=== PATIENT | male | born 1955 | race Caucasian/White ===

== ENCOUNTER 2017-09-28 21:00 | Emergency (ER) | payer OTHER ==
--- NOTE | 2017-09-28 21:34 | ER Document Report ---
ED Medical Screen (RME) - General Chief Complaint: Head Injury Stated Complaint: FALL Time Seen by Provider: 09/28/17 21:31 Notes: 62-year-old male that comes to the ED for chief complaint of fall and head injury, he tripped and hit his head on a block on the ground at 4:30 PM. Since then states he has been acting strange, he initially was complaining that he could not see but now he states his vision has cleared, states that he staggers and cannot walk in a straight line. Patient states he has a headache on the right side of his head, he hit the left side of his head. He is not on any blood thinners, past medical history of diabetes, no other medical history reported. He denies any alcohol use. TRAVEL OUTSIDE OF THE [place] IN LAST 30 DAYS: No - Related Data Allergies/Adverse Reactions: No Known Allergies Allergy (Verified 09/28/17 21:02) Past Medical History - Social History Chew tobacco use (# tins/day): No Frequency of alcohol use: Heavy Drug Abuse: None Endocrine Medical History: Reports: Hx Diabetes Mellitus Type 2 Renal/ Medical History: Denies: Hx Peritoneal Dialysis Past Surgical History: Reports: Hx Orthopedic Surgery - back surgery 30 years ago. - Immunizations Hx Diphtheria, Pertussis, Tetanus Vaccination: No Physical Exam - Vital signs Vitals: Temp Pulse Resp BP Pulse Ox 98 F 74 18 156/74 H 97 09/28/17 21:12 09/28/17 21:12 09/28/17 21:12 09/28/17 21:12 09/28/17 21:12 - Neurological Cognition: Normal Orientation: AAOx4 Jason Coma Scale Verbal: Oriented [place] Coma Scale Motor: Obeys Commands Speech: Normal Cranial nerves: Normal Cerebellar coordination: Gait ataxia Motor strength normal: LUE. No: RUE Course - Re-evaluation Re-evalutation: Patient with left arm weakness, gait instability. Concerning deficits after fall and head injury. Sent immediately for CAT scan. - Vital Signs Vital signs: Temp Pulse Resp BP Pulse Ox 98 F 74 18 156/74 H 97 09/28/17 21:12 09/28/17 21:12 09/28/17 21:12 09/28/17 21:12 09/28/17 21:12
--- NOTE | 2017-09-28 22:37 | RADIOLOGY REPORT (SQ) ---
EXAM DESCRIPTION: CT HEAD WITHOUT COMPLETED DATE/TIME: 09/28/2017 9:27 pm REASON FOR STUDY: fall, ?LOC COMPARISON: None. TECHNIQUE: Axial images acquired through the brain without intravenous contrast. Images reviewed wi th bone, brain and subdural windows. Images stored on PACS. All CT scanners at this facility use dose modulation, iterative reconstruction, and/or weight based d osing when appropriate to reduce radiation dose to as low as reasonably achievable (ALARA). [facility]: Dose Right [facility]: CareDose [facility]: Dose Right [facility]: Teradose 4D [facility]: Smart WhereNet RADIATION DOSE: CT Rad equipment meets quality standard of care and radiation dose reduction techniq ues were employed. CTDIvol: 53.2 mGy. DLP: 937 mGy-cm. mGy. LIMITATIONS: None. FINDINGS: VENTRICLES: Normal size and contour. CEREBRUM: No masses. No hemorrhage. No midline shift. No evidence for acute infarction. Normal gra y/white matter differentiation. No areas of low density in the white matter. CEREBELLUM: No masses. No hemorrhage. No alteration of density. No evidence for acute infarction. EXTRAAXIAL SPACES: No fluid collections. No masses. ORBITS AND GLOBE: No intra- or extraconal masses. Normal contour of globe without masses. CALVARIUM: No fracture. PARANASAL SINUSES: No fluid or mucosal thickening. SOFT TISSUES: No mass or hematoma. OTHER: No other significant finding. IMPRESSION: NORMAL BRAIN CT WITHOUT CONTRAST. EVIDENCE OF ACUTE STROKE: No COMMENT: Quality ID # [id number]: Final reports with documentation of one or more dose reduction techniques (e.g., Automated exposure control, adjustment of the mA and/or kV according to patient size, use of iterative reconstruction technique) TECHNICAL DOCUMENTATION: JOB ID: [id number] [employer]- All Rights Reserved Reading location - IP/workstation name: [email or web address]
--- NOTE | 2017-09-28 22:45 | ER Document Report ---
ED General - General Chief Complaint: Head Injury Stated Complaint: FALL Time Seen by Provider: 09/28/17 21:31 Notes: Patient is a 62-year-old male with a past medical history of hypertension, diabetes, current some day smoker who presents after a fall in which he struck his head. The patient reports that he tripped over his shoestrings falling down and striking his head on the ground. He reports that since that time he has had difficulty walking and his has noted that he seems confused. The patient is a notably poor historian, does seem to have difficulty expressing himself. The history is therefore somewhat impaired. The reports that since the time of injury the patient has been effectively unable to walk. The fall did occur at 3:30 PM today. Nothing has seemed to improve or worsen the patient's symptoms. He has no history of similar symptoms in the past. He has not seen his primary doctor regarding today's concerns. TRAVEL OUTSIDE OF THE [place] IN LAST 30 DAYS: No - Related Data Allergies/Adverse Reactions: No Known Allergies Allergy (Verified 09/28/17 21:02) Past Medical History - General Information source: Patient - Social History Smoking Status: Current Every Day Smoker Chew tobacco use (# tins/day): No Frequency of alcohol use: Heavy Drug Abuse: None Lives with: Spouse/Significant other Family History: Reviewed & Not Pertinent Patient has suicidal ideation: No Patient has homicidal ideation: No Endocrine Medical History: Reports: Hx Diabetes Mellitus Type 2 Renal/ Medical History: Denies: Hx Peritoneal Dialysis Past Surgical History: Reports: Hx Orthopedic Surgery - back surgery 30 years ago. - Immunizations Hx Diphtheria, Pertussis, Tetanus Vaccination: No Review of Systems - Review of Systems Notes: Constitutional: Negative for fever. HENT: Negative for sore throat. Eyes: Negative for visual changes. Cardiovascular: Negative for chest pain. Respiratory: Negative for shortness of breath. Gastrointestinal: Negative for abdominal pain, vomiting or diarrhea. Genitourinary: Negative for dysuria. Musculoskeletal: Negative for back pain. Skin: Negative for rash. Neurological: Positive for left-sided weakness and neglect 10 point ROS negative except as marked above and in HPI. Physical Exam - Vital signs Vitals: Temp Pulse Resp BP Pulse Ox 98 F 74 18 156/74 H 97 09/28/17 21:12 09/28/17 21:12 09/28/17 21:12 09/28/17 21:12 09/28/17 21:12 Interpretation: Hypertensive Notes: PHYSICAL EXAMINATION: GENERAL: Appears moderately ill, somewhat confused HEAD: Atraumatic, normocephalic. EYES: Pupils equal round and reactive to light, extraocular movements intact, sclera anicteric, conjunctiva are normal. ENT: nares patent, oropharynx clear without exudates. Moderately dry mucous membranes. NECK: Normal range of motion, supple without lymphadenopathy LUNGS: Breath sounds clear to auscultation bilaterally and equal. No wheezes rales or rhonchi. HEART: Regular rate and rhythm without murmurs ABDOMEN: Soft, nontender, normoactive bowel sounds. No guarding, no rebound. No masses appreciated. EXTREMITIES: no pitting or edema. No cyanosis. NEUROLOGICAL: Please review the medical decision making section for a more thorough neurologic examination. Slight left-sided facial droop. Left-sided neglect. Right gaze deviation. Slight dysarthria. Mild expressive aphasia. 5 out of 5 strength both distally and proximally in the right upper and lower extremity. Patient is unable to ambulate. PSYCH: Seems confused, somewhat indifferent the gravity of his situation SKIN: Warm, Dry, normal turgor, no rashes or lesions noted. Course - Re-evaluation Re-evalutation: 09/28/17 2200 Presentation is extremely worrisome for an acute stroke although patient presents 7 hours after the onset of symptoms. He has a very atypical left- sided hemineglect. Patient will move the left upper and lower extremity with verbal command but when the left side is touched he will not move it with prompting. For example, when I asked the patient to quality control my fingers on both sides he crosses midline with his left hand attempts to use both hands to grab my right hand. Even though I correct him and ask him to again squeeze with his left hand and right hand he continues to only squeeze on the right side and continues to move his left hand to squeeze my right hand. When we attempt to walk the patient he refuses to use his left upper extremity to try to help sit him up in the bed. When he attempts to walk he makes no effort to bear weight with the left lower extremity. He does maintain a right gaze deviation but does cross midline to look to the left with prompting. His speech is slowed and delayed but without dysarthria or overt aphasia. Very high level concern for an acute stroke although patient is currently outside the TPA window. I discussed the results of the CT scan as I feel that there is what appears to be an acute infarction to the right frontoparietal lobe with the radiologist although she does not believe that there is any evidence of infarction. Will contact [facility] for transfer as we do not currently have neurology support or MRI capability. 2320 Patient is having relatively rapid worsening of his symptoms, now much more lethargic, struggling to answer basic questions, continues of the right gaze deviation, no strength with testing on the left upper extremity at this time although is maintaining some strength of the left lower extremity. He continues to refuse to move the left side with physical touch. I am worried that the patient may be having evolution of an ischemic stroke versus hemorrhagic conversion. He will immediately go over for repeat CT the head and will also obtain a CT of the cervical spine while there given that he did initially have a trauma as part of his presentation. I have spoken with the stroke attending at [facility] who has recommended the patient come to [facility] for further evaluation by neurology and he has requested the hospitalist admit. 09/28/17 23:34 I discussed this case with Dr. Gil the hospitalist at [facility] was accepted this patient for transfer. I have updated him on the patient's deterioration and my plans to repeat a CT scan. I will update him with any further worsening that would indicate a need for ICU admission. I will continue to reassess the patient at regular intervals to monitor for any compromise of the airway. 09/29/17 00:37 CT repeats show an acute stroke in the right frontal parietal distribution likely a watershed distribution per the radiologist. He also notes that it appears the patient likely has a proximal right internal carotid artery occlusion. The transfer center at [facility] has been contacted to update them on the CT findings and the confirmation of a stroke distribution. Patient continues to protect his airway. 09/29/17 01:04 I have spoken to Dr. Gil and updated him on the CTA findings. He has asked that I speak with interventional neurosurgery and I am awaiting callback. 09/29/17 01:34 I was connected with the stroke attending as opposed to the interventional radiologist with whom I have asked to be connected. has asked that I be connected to the interventional neuro-radiologist. Continue to await this connection. 09/29/17 01:[address] corbett the neurosurgeon on-call who feels the patient should come over immediately as a code stroke for possible intervention with neuroradiology. The transfer center is aware of this and we will expedite this patient's transfer. 09/29/17 02:38 Transport has arrived for patient transfer. He is going to helicopter transport. He is stable for transfer this time. He has almost complete left- sided neglect at this time. - Vital Signs Vital signs: Temp Pulse Resp BP Pulse Ox 98 F 62 18 155/69 H 97 09/28/17 21:12 09/29/17 02:32 09/29/17 02:32 09/29/17 02:32 09/29/17 02:32 - Laboratory Result Diagrams: 09/28/17 22:50 09/28/17 22:50 Laboratory results interpreted by me: 09/28/17 09/28/17 22:50 22:50 Glucose 122 H Hemoglobin A1c % 6.3 H AST 14 L Triglycerides 182 H Cholesterol 210.74 H LDL Cholesterol Direct 132 H VLDL Cholesterol 36.4 H - Diagnostic Test Radiology reviewed: Image reviewed, Reports reviewed Radiology results interpreted by me: 09/29/17 03:35 CT head 1: Apparent acute versus subacute infarct in the frontal and parietal lobes repeat head CT: Unchanged from prior he had CT, unchanged from prior - EKG Interpretation by Me Additional EKG results interpreted by me: 09/29/17 03:33 Sinus rhythm. Rate 62. No ST elevations or depressions. QTC is 443. Critical Care Note - Critical Care Note Total time excluding time spent on procedures (mins): 87 Comments: Critical care time spent obtaining history from patient or surrogate, discussions with consultants, development of treatment plan with patient or surrogate, evaluation of patient's response to treatment, examination of patient , ordering and performing treatments and interventions, ordering and review of laboratory studies, re-evaluation of patient's condition, ordering and review of radiographic studies and review of old charts Discharge - Discharge Clinical Impression: Acute ischemic stroke, Miko-neglect of left side Head trauma Qualifiers: Encounter type: initial encounter Qualified Code(s): S09.90XA - Unspecified injury of head, initial encounter Condition: Critical Disposition: [facility]
[2017-09-28 23:05] LABS: ABSOLUTE BASOPHILS # (AUTO) 0.1 10^3/uL (0.0-0.2); ABSOLUTE EOSINOPHILS # (AUTO) 0.1 10^3/uL (0.0-0.6); ABSOLUTE LYMPHOCYTES (AUTO) 2.9 10^3/uL (0.5-4.7); ABSOLUTE MONOCYTES (AUTO) 0.7 10^3/uL (0.1-1.4); ABSOLUTE NEUT (AUTO) 5.3 10^3/uL (1.7-8.2); BASOPHILS % (AUTO) 0.8 % (0-2); EOSINOPHILS % (AUTO) 1.3 % (0-6); HEMATOCRIT 42.9 % (37.9-51.0); HEMOGLOBIN 14.6 g/dL (13.5-17.0); LYMPHOCYTES % (AUTO) 31.3 % (13-45); MEAN CORPUSCULAR VOLUME 94 fl (80-97); MONOCYTES % (AUTO) 8.1 % (3-13); PLATELET COUNT 252 10^3/uL (150-450); RED BLOOD COUNT 4.56 10^6/uL (4.35-5.55); RED CELL DISTRIBUTION WIDTH 13.4 % (11.5-14.0); SEGMENTED NEUTROPHILS % (AUTO) 58.5 % (42-78); TOTAL CELLS COUNTED % (AUTO) 100 %; WHITE BLOOD COUNT 9.1 10^3/uL (4.0-10.5)
[2017-09-28 23:09] LABS: INTERNATIONAL RATION (INR) 0.88; PARTIAL THROMBOPLASTIN TIME 26.5 SEC (23.5-35.8); PROTHROMBIN TIME 12.6 SEC (11.4-15.4)
[2017-09-28 23:23] LABS: ALANINE AMINOTRANSFERASE 25 U/L (21-72); ALBUMIN 4.3 g/dL (3.5-5.0); ALKALINE PHOSPHATASE 77 U/L (38-126); ANION GAP 11 (5-19); ASPARTATE AMINO TRANSFERASE 14 U/L (17-59); BILIRUBIN,DIRECT 0.1 mg/dL (0.0-0.4); BILIRUBIN,TOTAL 0.3 mg/dL (0.2-1.3); BLOOD UREA NITROGEN 13 mg/dL (7-20); CALCIUM 9.7 mg/dL (8.4-10.2); CARBON DIOXIDE 24 mmol/L (22-30); CHLORIDE 106 mmol/L (98-107); CHOLESTEROL 210.74 mg/dL (0-200); GLUCOSE 122 mg/dL (75-110); POTASSIUM 4.2 mmol/L (3.6-5.0); SODIUM 141.3 mmol/L (137-145); TRIGLYCERIDES 182 mg/dL (<150)
[2017-09-28 23:40] LABS: ALCOHOL < 10 mg/dL (NONE DETECTED); DIRECT LDL 132 mg/dL (<100); VLDL CHOLESTEROL 36.4 mg/dL (10-31)
[2017-09-29] MEDS ORDERED: CLOPIDOGREL BISULFATE 75 MG TABLET PO ONE (00:34)
[2017-09-29] MEDS ORDERED: ASPIRIN 81 MG TABLET, CHEWABLE PO ONE (00:34)
--- NOTE | 2017-09-29 00:45 | RADIOLOGY REPORT (SQ) ---
EXAM DESCRIPTION: CTA HEAD CLINICAL HISTORY: acute stroke, fall COMPARISON: None available TECHNIQUE: Axial CTA of the head obtained from the skull apex to the skull base following the uncomplicated intravenous administration of 80 mL Isovue-370. FINDINGS: Anterior circulation: In the anterior circulation there is occlusion of flow in the visualized portions of the distal cervical petrous portions of the internal carotid artery with reconstitution of flow at the level of the cavernous internal carotid artery. Reconstitution of flow may be from the ophthalmic artery branches or may be via the anterior communicating artery. The reconstituted cavernous and supraclinoid segments of the internal carotid arteries have normal course and caliber and bifurcates into patent A1 and M1 segments of the anterior and middle cerebral arteries. Additionally the right circulation gives rise to a origin right [employer] supplied predominantly by the internal carotid artery. No definite aneurysm identified. The left intracranial internal carotid artery has normal course and caliber and bifurcates into widely patent A1 and M1 branches of the left anterior and middle cerebral arteries. The left posterior communicating artery is hypoplastic. The anterior communicating artery is patent. Posterior circulation: The dominant right vertebral artery. The intracranial vertebral arteries combined to form a patent basilar artery. The basilar artery terminates predominantly in the left posterior cerebral artery and gives minimal if any supply to the right posterior cerebral artery. The superior cerebellar arteries are patent. No definite aneurysm, occlusion, or stenosis in the posterior circulation. DLP:170.12 mGy-cm IMPRESSION: 1. There is occlusion or very high-grade stenosis involving the distal cervical and petrous portions of the right internal carotid artery with reconstitution of flow at the level of the cavernous portion of the right internal carotid artery. Correlation with CTA or MRA of the neck may provide level of occlusion. 2. The supraclinoid segments of the right internal carotid artery are patent without evidence of occlusion, stenosis, or branch vessel pruning. It is of note that the right posterior cerebral artery is of origin from the right internal carotid artery. If the patient is having a watershed distribution infarction the right [employer] distribution will also be affected. 3. No evidence of stenosis or occlusion involving the left anterior circulation or posterior circulation supplied by the vertebral and basilar arteries. Urgent finding reported to Dr. Nix at 09/28/2017 11:33 PM CDT This exam was performed according to our departmental dose-optimization program, which includes automated exposure control, adjustment of the mA and/or kV according to patient size and/or use of iterative reconstruction technique.
--- NOTE | 2017-09-29 00:46 | RADIOLOGY REPORT (SQ) ---
EXAM DESCRIPTION: CT HEAD WITHOUT CLINICAL HISTORY: repeat, worsening mentation, left sided weakness COMPARISON: None available TECHNIQUE: Axial CT of the head obtained from the skull apex to the skull base without contrast. FINDINGS: No acute intracranial hemorrhage identified. No mass, mass effect, shift of the midline, or abnormal extra-axial fluid collection.Wedge-shaped regions of hypodensity involving the watershed distribution of the right cerebral hemisphere concerning for subacute ischemic change. The ventricular system and sulcal spaces are mildly enlarged compatible with mild cerebral atrophy. Scattered areas of hypodensity throughout the supratentorial white matter are nonspecific and may be related to chronic small vessel ischemic change. The visualized paranasal sinuses and the mastoids are clear. No skull fracture identified. Visualized orbits and globes are unremarkable. Atherosclerotic calcification of the intracranial internal carotid arteries. DLP:1070.38 mGy-cm IMPRESSION: 1. Hypodensities in the watershed distribution of the right cerebral hemisphere concerning for acute/subacute ischemic change. Correlation with MRI would confirm acute ischemia/infarction. Urgent finding reported to Dr. Nix at 09/28/2017 11:33 PM CDT This exam was performed according to our departmental dose-optimization program, which includes automated exposure control, adjustment of the mA and/or kV according to patient size and/or use of iterative reconstruction technique.
--- NOTE | 2017-09-29 00:48 | RADIOLOGY REPORT (SQ) ---
EXAM DESCRIPTION: CT CERVICAL SPINE WITHOUT CLINICAL HISTORY: acute stroke, fall COMPARISON: None available TECHNIQUE: Axial CT of the cervical spine obtained without contrast. FINDINGS: Alignment of the cervical spine is maintained without evidence of subluxation. The atlantoaxial, atlantodental, and occipitoatlantal intervals are preserved. No fracture identified. Vertebral body height preserved. Prevertebral soft tissues are unremarkable. Mild multilevel loss of intervertebral disc height with endplate spondylosis and uncovertebral spurring. Mild facet arthropathy. No significant neural foraminal nor central canal narrowing. Degenerative change of the atlantodental articulation. Visualized skull base is intact. No fracture of the visualized facial bones. Visualized mastoid air cells and paranasal sinuses are well aerated. Visualized thyroid is unremarkable. No cervical lymphadenopathy. No pneumothorax in the visualized lung apices. DLP: 221.57 mGy-cm IMPRESSION: 1. No acute fracture or subluxation of the cervical spine. This exam was performed according to our departmental dose-optimization program, which includes automated exposure control, adjustment of the mA and/or kV according to patient size and/or use of iterative reconstruction technique.
[2017-09-29 02:23] VITALS: BP 155/69
--- NOTE | 2017-09-29 09:35 | EKG REPORT ---
SEVERITY:- NORMAL ECG - SINUS RHYTHM : Confirmed by: Rick Ward 29-Sep-2017 09:35:07
== END 2017-09-29 02:45 | disposition short-term general hospital (02) ==
LOC: ER 21:00
DX: I63.9 Cerebral infarction, unspecified (principal); G81.90 Hemiplegia, unspecified affecting unspecified side; S09.90XA Unspecified injury of head, initial encounter; I10 Essential (primary) hypertension; E11.9 Type 2 diabetes mellitus without complications; F17.200 Nicotine dependence, unspecified, uncomplicated; W18.09XA Striking against other object with subsequent fall, initial encounter
CPT/HCPCS: 93005; 99291; 99292; 36415; 80307; 85025; 85610; 85730; 80053; 84484; 83036; 80061; 70450; 70496; 72125; 93010; A9270 ×2

== ENCOUNTER 2018-12-08 18:40 | Emergency (ER) | payer MEDICAID, MEDICARE ==
--- NOTE | 2018-12-08 19:09 | ER Document Report ---
ED Medical Screen (RME) - General Chief Complaint: Psych Problem Stated Complaint: ALTERED MENTAL STATUS Time Seen by Provider: 12/08/18 19:06 Primary Care Provider: DRE GARCIA III, MD [Primary Care Provider] - Follow up as needed Mode of Arrival: Wheelchair Information source: Patient Notes: 63-year-old male presented to ED for suicidal ideation. states he has had suicidal thoughts off and on for a year since he had a stroke a year ago but for the last month his been more more frequently talk about hurting himself. He states tonight he stated that he needed to go the hospital right away that he was having a "psychotic break" and he thought he might hurt himself. I have greeted and performed a rapid initial assessment of this patient. A comprehensive ED assessment and evaluation of the patient, analysis of test results and completion of medical decision making process will be conducted by an additional ED providers. Dictation of this chart was performed using voice recognition software; therefore, there may be some unintended grammatical errors. TRAVEL OUTSIDE OF THE [place] IN LAST 30 DAYS: No - Related Data Allergies/Adverse Reactions: No Known Allergies Allergy (Verified 12/08/18 18:42) Past Medical History Endocrine Medical History: Reports: Hx Diabetes Mellitus Type 2 Renal/ Medical History: Denies: Hx Peritoneal Dialysis Past Surgical History: Reports: Hx Orthopedic Surgery - back surgery 30 years ago. - Immunizations Hx Diphtheria, Pertussis, Tetanus Vaccination: No Physical Exam - Vital signs Vitals: Temp Pulse Resp BP Pulse Ox 98.7 F 77 14 121/84 95 12/08/18 18:56 12/08/18 18:56 12/08/18 18:56 12/08/18 18:56 12/08/18 18:56 Course - Vital Signs Vital signs: Temp Pulse Resp BP Pulse Ox 98.7 F 77 14 121/84 95 12/08/18 18:56 12/08/18 18:56 12/08/18 18:56 12/08/18 18:56 12/08/18 18:56 Doctor's Discharge - Discharge Referrals: DRE GARCIA III, MD [Primary Care Provider] - Follow up as needed
--- NOTE | 2018-12-08 19:27 | ER Document Report ---
Addendum entered and electronically signed by REGGIE JANE DO 12/12/18 11:56: Discharge - Discharge Clinical Impression: Suicidal ideation Condition: Stable Disposition: HOME, SELF-CARE Additional Instructions: You have been evaluated by both medical and behavioral health providers while in the emergency department. You have been cleared from both acute medical and psychiatric services. Your medications have been adjusted to better address depression and anxiety. You have had a medical situation that has changed your life. In such situations outpatient therapy is often helpful and recommended. DEPRESSION: Your evaluation reveals that you have mental depression. While symptoms may be vague, they often include disturbance of sleep, fatigue, loss of appetite, and general loss of interest in life. While depression may be a side effect of drugs, or a reaction to a major change in your life, many cases have no known cause. If depression is acute, and related to a major loss in your life, you can expect it to clear completely with time. If you have been depressed a long time, are prone to repeated bouts of depression or low mood, or have been thinking of suicide, get help. Depression can be treated with anti-depressant medication and counselling. Long-term depression will often take a few weeks to clear, even with appropriate medication. Follow-up care is important. SUICIDAL IDEATION: Suicidal ideation is a common medical term for thoughts about suicide, which may be as detailed as a formulated plan, without the suicidal act itself. Although most people who undergo suicidal ideation do not commit suicide, some go on to make suicide attempts. The range of suicidal ideation varies greatly from fleeting to detailed planning, role playing, and unsuccessful attempts. While thoughts about suicide are common, most people do not carry out serious actions to commit suicide. Based upon your evaluation and discussion with you, we do not believe you are currently at risk to act upon your thoughts of suicide. You have agreed to return to the Emergency Department, at any time, if you feel inclined to act upon your suicidal thoughts. FOLLOW-UP CARE: Your medication regimen is Prozac 20MG daily for depression and Buspar 5MG twice a day for anxiety/calming effect/depression/sleep. You should take these medications as prescribed. You have follow up appointments at [facility] ([facility]) 12/20/18 at 0800 for medication management and 12/27/18 at 0900 for therapy. You have been provided the [facility] Mobile Crisis number for crisis, talk therapy and linkage to other services/supports. If you experience worsening or a significant change in your symptoms, notify the physician immediately, utilize mobile crisis or return to the Emergency Department at any time for re-evaluation. Prescriptions: Buspirone HCl [Buspar 5 mg Tablet] 1 tab PO BID #28 tab Fluoxetine HCl [Prozac 20 mg Capsule] 20 mg PO DAILY #14 capsule Referrals: [facility] [Provider Group] - 12/20/18 7:30 am [facility]FS Crisis Team [Outside] - Follow up as needed DRE GARCIA III, MD [Primary Care Provider] - Follow up as needed Addendum entered and electronically signed by AVINASH ARGUELLO LPC 12/12/18 11:35: Discharge - Discharge Clinical Impression: Suicidal ideation Condition: Stable Disposition: HOME, SELF-CARE Additional Instructions: You have been evaluated by both medical and behavioral health providers while in the emergency department. You have been cleared from both acute medical and psychiatric services. Your medications have been adjusted to better address depression and anxiety. You have had a medical situation that has changed your life. In such situations outpatient therapy is often helpful and recommended. DEPRESSION: Your evaluation reveals that you have mental depression. While symptoms may be vague, they often include disturbance of sleep, fatigue, loss of appetite, and general loss of interest in life. While depression may be a side effect of drugs, or a reaction to a major change in your life, many cases have no known cause. If depression is acute, and related to a major loss in your life, you can expect it to clear completely with time. If you have been depressed a long time, are prone to repeated bouts of depression or low mood, or have been thinking of suicide, get help. Depression can be treated with anti-depressant medication and counselling. Long-term depression will often take a few weeks to clear, even with appropriate medication. Follow-up care is important. SUICIDAL IDEATION: Suicidal ideation is a common medical term for thoughts about suicide, which may be as detailed as a formulated plan, without the suicidal act itself. Although most people who undergo suicidal ideation do not commit suicide, some go on to make suicide attempts. The range of suicidal ideation varies greatly from fleeting to detailed planning, role playing, and unsuccessful attempts. While thoughts about suicide are common, most people do not carry out serious actions to commit suicide. Based upon your evaluation and discussion with you, we do not believe you are currently at risk to act upon your thoughts of suicide. You have agreed to return to the Emergency Department, at any time, if you feel inclined to act upon your suicidal thoughts. FOLLOW-UP CARE: Your medication regimen is Prozac 20MG daily for depression and Buspar 5MG twice a day for anxiety/calming effect/depression/sleep. You should take these medications as prescribed. You have follow up appointments at [facility] ([facility]) 12/20/18 at 0800 for medication management and 12/27/18 at 0900 for therapy. You have been provided the [facility] Mobile Crisis number for crisis, talk therapy and linkage to other services/supports. If you experience worsening or a significant change in your symptoms, notify the physician immediately, utilize mobile crisis or return to the Emergency Department at any time for re-evaluation. Referrals: DRE GARCIA III, MD [Primary Care Provider] - Follow up as needed [facility] Crisis Team [Outside] - Follow up as needed [facility] [Provider Group] - 12/20/18 7:30 am Original Note: ED General - General Chief Complaint: Psych Problem Stated Complaint: ALTERED MENTAL STATUS Time Seen by Provider: 12/08/18 19:06 Primary Care Provider: DRE GARCIA III, MD [Primary Care Provider] - Follow up as needed Mode of Arrival: Wheelchair Notes: Patient is a 63-year-old male with history of stroke, and depression that presents to the emergency department for chief complaint of suicidal ideation. Patient states that he has been having more frequent suicidal thoughts, mentions that he would drink Maicol-Aid and antifreeze, his reports that after he was discharged home after having a stroke about a year ago, he has been more depressed, and having suicidal thoughts more frequently and more recently. He does walk to some degree, but states that he feels worthless, is not able to do anything that he used to be able to do. He had a suicide attempt about 8 years ago family states has been on and off suicidal for many years since her daughter , is a former alcoholic but has been much worse since leaving the hospital after his stroke. His states that she has removed all the guns in the house and the accessible pills, but states that he frequently will look for the guns as well as medications. Past Medical History: CVA, diabetes mellitus, hypertension, hyperlipidemia, depression Past Surgical History: Back surgery Social History: Admits to smoking cigarettes, former alcoholic, no drug use. Lives at home with family Family History: Reviewed and noncontributory for presenting illness Allergies: Reviewed, see documented allergy list. REVIEW OF SYSTEMS: Other than noted above, the 12 point review of systems was reviewed with the patient and were negative, all pertinent findings are included in the HPI. PHYSICAL EXAMINATION: Vital signs reviewed, nursing noted reviewed. GENERAL: Well-appearing, well-nourished and in no acute distress. HEAD: Atraumatic, normocephalic. EYES: Eyes appear normal, extraocular movements intact, sclera anicteric, conjunctiva are normal. ENT: nares patent, oropharynx clear without exudates. Moist mucous membranes. NECK: Normal range of motion, supple without lymphadenopathy LUNGS: Breath sounds clear to auscultation bilaterally and equal. No wheezes r ales or rhonchi. HEART: Regular rate and rhythm without murmurs ABDOMEN: Soft, nontender, normoactive bowel sounds. No rebound, guarding, or rigidity. No masses appreciated. EXTREMITIES: Nontender, good range of motion, no pitting or edema. NEUROLOGICAL: Left-sided complete hemiparesis, sensation intact distally in all extremities, alert and oriented x4. PSYCH: Dysphoric mood, flat affect SKIN: Warm, Dry, normal turgor, no rashes or lesions noted on exposed skin TRAVEL OUTSIDE OF THE [place] IN LAST 30 DAYS: No - Related Data Allergies/Adverse Reactions: No Known Allergies Allergy (Verified 12/08/18 18:42) Past Medical History - General Information source: Patient - Social History Smoking Status: Current Every Day Smoker Frequency of alcohol use: None Drug Abuse: None Family History: Reviewed & Not Pertinent Patient has suicidal ideation: Yes Patient has homicidal ideation: No Endocrine Medical History: Reports: Hx Diabetes Mellitus Type 2 Renal/ Medical History: Denies: Hx Peritoneal Dialysis Past Surgical History: Reports: Hx Orthopedic Surgery - back surgery 30 years ago. - Immunizations Hx Diphtheria, Pertussis, Tetanus Vaccination: No Physical Exam - Vital signs Vitals: Temp Pulse Resp BP Pulse Ox 98.7 F 77 14 121/84 95 12/08/18 18:56 12/08/18 18:56 12/08/18 18:56 12/08/18 18:56 12/08/18 18:56 Course - Re-evaluation Re-evalutation: Patient seen and examined, vital signs reviewed. Medical screening testing was ordered including bloodwork, EKG, and toxicology. Results of testing were reviewed. Testing demonstrated mild leukocytosis, and mild anemia, no evidence of acute infection based on exam. Patient has been stable from a hemodynamic standpoint. At this point I feel that the patient is medically cleared and can be further evaluated from a psychiatric standpoint for final disposition from the emergency department. Patient seems to be rather depressed and dysphoric, and does seem to have intent, he is on an SSRI, but is still having frequent suicidal thoughts, and would benefit evaluation from a psychiatric team, he also will likely need continued rehab, which would benefit his mental health as well, family thinks he may need inpatient rehab if possible, social work was consulted to discuss about this the patient is cleared. Patient updated on plan of care. Laboratory 12/08/18 12/08/18 19:15 19:15 WBC 10.6 H RBC 4.04 L Hgb 12.9 L Hct 36.5 L MCV 90 MCH 31.9 MCHC 35.3 RDW 13.0 Plt Count 340 Seg Neutrophils % 60.7 Lymphocytes % 30.1 Monocytes % 6.6 Eosinophils % 1.5 Basophils % 1.1 Absolute Neutrophils 6.5 Absolute Lymphocytes 3.2 Absolute Monocytes 0.7 Absolute Eosinophils 0.2 Absolute Basophils 0.1 Sodium 140.4 Potassium 3.8 Chloride 102 Carbon Dioxide 28 Anion Gap 10 BUN 15 Creatinine 0.86 Est GFR ( Amer) > 60 Est GFR (Non-Af Amer) > 60 Glucose 131 H Calcium 9.6 Total Bilirubin 0.2 Direct Bilirubin 0.2 Neonat Total Bilirubin Not Reportable Neonat Direct Bilirubin Not Reportable Neonat Indirect Bili Not Reportable AST 13 L ALT 22 Alkaline Phosphatase 87 Total Protein 7.0 Albumin 4.3 Salicylates < 1.0 L Acetaminophen < 10 L Serum Alcohol < 10 - Vital Signs Vital signs: Temp Pulse Resp BP Pulse Ox 98.7 F 77 14 121/84 95 12/08/18 18:56 12/08/18 18:56 12/08/18 18:56 12/08/18 18:56 12/08/18 18:56 - Laboratory Result Diagrams: 12/08/18 19:15 12/08/18 19:15 Laboratory results interpreted by me: 12/08/18 12/08/18 19:15 19:15 WBC 10.6 H RBC 4.04 L Hgb 12.9 L Hct 36.5 L Glucose 131 H AST 13 L Salicylates < 1.0 L Acetaminophen < 10 L - EKG Interpretation by Me Additional EKG results interpreted by me: EKG demonstrates sinus rhythm with a ventricular rate of 66 bpm, normal axis, normal intervals no evidence of acute ischemia in this EKG, compared to prior EKG from 09/28/2017, without significant change. Discharge - Discharge Clinical Impression: Suicidal ideation Condition: Stable Disposition: PSYCH HOSP/UNIT Referrals: DRE GARCIA III, MD [Primary Care Provider] - Follow up as needed
[2018-12-08 19:28] LABS: ABSOLUTE BASOPHILS # (AUTO) 0.1 10^3/uL (0.0-0.2); ABSOLUTE EOSINOPHILS # (AUTO) 0.2 10^3/uL (0.0-0.6); ABSOLUTE LYMPHOCYTES (AUTO) 3.2 10^3/uL (0.5-4.7); ABSOLUTE MONOCYTES (AUTO) 0.7 10^3/uL (0.1-1.4); ABSOLUTE NEUT (AUTO) 6.5 10^3/uL (1.7-8.2); BASOPHILS % (AUTO) 1.1 % (0-2); EOSINOPHILS % (AUTO) 1.5 % (0-6); HEMATOCRIT 36.5 % (37.9-51.0); HEMOGLOBIN 12.9 g/dL (13.5-17.0); LYMPHOCYTES % (AUTO) 30.1 % (13-45); MEAN CORPUSCULAR HEMOGLOBIN 31.9 pg (27.0-33.4); MEAN CORPUSCULAR HGB CONC 35.3 g/dL (32.0-36.0); MEAN CORPUSCULAR VOLUME 90 fl (80-97); MONOCYTES % (AUTO) 6.6 % (3-13); PLATELET COUNT 340 10^3/uL (150-450); RED BLOOD COUNT 4.04 10^6/uL (4.35-5.55); SEGMENTED NEUTROPHILS % (AUTO) 60.7 % (42-78); TOTAL CELLS COUNTED % (AUTO) 100 %; WHITE BLOOD COUNT 10.6 10^3/uL (4.0-10.5)
[2018-12-08 19:48] LABS: ACETAMINOPHEN < 10 ug/mL (10-30); ALANINE AMINOTRANSFERASE 22 U/L (21-72); ALBUMIN 4.3 g/dL (3.5-5.0); ALCOHOL < 10 mg/dL (NONE DETECTED); ALKALINE PHOSPHATASE 87 U/L (38-126); ANION GAP 10 (5-19); ASPARTATE AMINO TRANSFERASE 13 U/L (17-59); BILIRUBIN,DIRECT 0.2 mg/dL (0.0-0.4); BILIRUBIN,TOTAL 0.2 mg/dL (0.2-1.3); BLOOD UREA NITROGEN 15 mg/dL (7-20); CALCIUM 9.6 mg/dL (8.4-10.2); CARBON DIOXIDE 28 mmol/L (22-30); CHLORIDE 102 mmol/L (98-107); GLUCOSE 131 mg/dL (75-110); POTASSIUM 3.8 mmol/L (3.6-5.0); SALICYLATE < 1.0 mg/dL (2.0-20.0); SODIUM 140.4 mmol/L (137-145)
[2018-12-09] MEDS ORDERED: TRAZODONE HCL 50 MG TABLET PO ONE (00:06)
--- NOTE | 2018-12-09 07:39 | EKG REPORT ---
SEVERITY:- NORMAL ECG - SINUS RHYTHM : Confirmed by: Javier Bedoya MD 09-Dec-2018 07:38:35
[2018-12-09 09:09] LABS: APPEARANCE,URINE CLEAR; BILIRUBIN,URINE NEGATIVE (NEGATIVE); COLOR,URINE YELLOW; GLUCOSE, URINE NEGATIVE (NEGATIVE); KETONES,URINE NEGATIVE (NEGATIVE); LEUKOCYTE ESTERASE,URINE NEGATIVE (NEGATIVE); NITRITE,URINE NEGATIVE (NEGATIVE); PROTEIN,URINE NEGATIVE (NEGATIVE); URINE SPECIFIC GRAVITY 1.013; UROBILINOGEN,URINE NEGATIVE mg/dL (<2.0)
[2018-12-09 09:38] LABS: URINE AMPHETAMINES SCREEN NEGATIVE; URINE BARBITURATES SCREEN NEGATIVE; URINE BENZODIAZEPINES SCREEN NEGATIVE; URINE COCAINE SCREEN NEGATIVE; URINE MARIJUANA (THC) SCREEN NEGATIVE; URINE METHADONE SCREEN NEGATIVE; URINE PHENCYCLIDINE SCREEN NEGATIVE
[2018-12-09] MEDS ORDERED: FAMOTIDINE 20 MG TABLET PO ONE (09:38)
[2018-12-09] MEDS ORDERED: FLUOXETINE HCL 20 MG CAPSULE PO SCH (10:00)
[2018-12-09] MEDS: ATORVASTATIN CALCIUM 40 MG TABLET PO SCH (10:06)
[2018-12-09] MEDS: AMLODIPINE BESYLATE 5 MG TABLET PO SCH (10:09)
[2018-12-09] MEDS: LEVETIRACETAM 500 MG TABLET PO SCH ×2 (10:09→17:15)
[2018-12-09] MEDS: METFORMIN HCL 500 MG TABLET PO SCH ×2 (10:09→17:14)
--- NOTE | 2018-12-09 16:40 | PSYCHOLOGICAL NOTE ---
Psych Note - Psych Note Date seen by psych provider: 12/09/18 Time seen by psych provider: 08:00 - 0810 Psych Note: Reason for Consult: Suicidal ideation 63-year-old male presented to ED for suicidal ideation. states he has had suicidal thoughts off and on for a year since he had a stroke a year ago but for the last month his been more more frequently talk about hurting himself. Patient reports that he came to [facility] because "my said that I told her I wanted to kill myself." He then states that he did tell her that he could drink antifreeze mixed with Maicol-Aid; "what good am I? I am not a man no more... I am just a mad old man good for nothing, I can even mow the lawn." He continues to disclose that his "tolerates me" and that he is told her to divorce him into leave but that she refuses. He reports that that he loves her but feels that she would be better without him. He continued to disclose that the only reason he is "still surviving for now" is because his 4-month-old grandchild which she identifies as "the light of my eyes." Patient discloses that he has had plans however his had removed access so feels that if he just hit his head right with the plate and screws and it "it should do the job." Patient confirms onset of his feelings as after his stroke however feels that he has been having difficulty since his oldest daughter in a car accident approximately 15 years ago in [place]. Patient's is very tearful and concerned the patient wants to kill himself. She has removed the guns from the home and have locked up all medications. She reports that lately he has been "falling out of bed" and could not figure out why however now feels that that may be him trying to hit his head. She reports significant increase in depression since the patient's stroke and resulting paralysis but confirms depression started back at the of the oldest daughter. She is alert and orientated to person, place, time and circumstance. Mood is dysphoric with tearful affect. Patient endorses suicidal ideation plan. Denies homicidal ideation. Delusions are absent behaviors congruent with an intact reality based presentation i.e. organized linear thought process. Eye contact is fair. Conversational speech is within normal rate, tone and prosody. Intellectual abilities appear to be within the average range. Attention and concentration are fair. Insight, judgment, impulse control are poor. Major depressive episode due to other medical condition complicated bereavement Medication recommendations per [facility]'s contracted psychiatrist Dr Pop BARBER are as follows decrease prozac to 20mg daily Discontinue trazadone Add Buspar 5mg twice daily Impression/Plan: patient is recommended for IVC. Patient is actively suicidal with extreme dysphoria, complicated bereavement, and loss of identity crisis. Medication recommendations have been provided and patient will be re-evaluated. Dr. Cerda was consulted was the care and management of this patient. Attending physician is in agreement with recommendations and disposition.
[2018-12-10] MEDS: METFORMIN HCL 500 MG TABLET PO SCH ×2 (10:34→18:07)
[2018-12-10] MEDS: FLUOXETINE HCL 20 MG CAPSULE PO SCH (10:34)
[2018-12-10] MEDS: AMLODIPINE BESYLATE 5 MG TABLET PO SCH (10:34)
[2018-12-10] MEDS: ATORVASTATIN CALCIUM 40 MG TABLET PO SCH (10:34)
[2018-12-10] MEDS: LEVETIRACETAM 500 MG TABLET PO SCH ×2 (10:35→18:07)
--- NOTE | 2018-12-10 16:38 | PSYCHOLOGICAL NOTE ---
Psych Note - Psych Note Date seen by psych provider: 12/10/18 Psych Note: Reason for Consult: Suicidal ideation 63-year-old male presented to ED for suicidal ideation. states he has had suicidal thoughts off and on for a year since he had a stroke a year ago but for the last month his been more more frequently talk about hurting himself. Patient's packet sent to [facility] Major depressive episode due to other medical condition complicated bereavement Medication recommendations per [facility] contracted psychiatrist Dr Pop BARBER are as follows decrease prozac to 20mg daily Discontinue trazadone Add Buspar 5mg twice daily Impression/Plan: patient is recommended for continued IVC. Patient is actively suicidal with extreme dysphoria, complicated bereavement, and loss of identity crisis. Medication recommendations have been provided and patient will be re- evaluated. Dr. Cerda was consulted was the care and management of this patient. Attending physician is in agreement with recommendations and disposition.
--- NOTE | 2018-12-11 09:00 | PSYCHOLOGICAL NOTE ---
Psych Note - Psych Note Date seen by psych provider: 12/11/18 Psych Note: Presenting Problem: SI, grief, change in life due to medical (stroke 1 year ago, left sided paralysis as a result, identity loss, total care). Diagnosis: Uncomplicated Bereavement Unspecified Depressive Disorder Impression/Plan: Recommendation
--- NOTE | 2018-12-11 09:24 | ER Document Report ---
Doctor's Note Notes: 12/11/18 09:22 Patient seen and evaluated. He has a flat affect. Patient is currently being seen by a psych for suicidal ideation, complicated bereavement and depression. He is calm and cooperative and answering questions. He has no current complaints. Will await further psych recommendations for disposition.
[2018-12-11] MEDS: METFORMIN HCL 500 MG TABLET PO SCH ×2 (09:26→17:37)
[2018-12-11] MEDS: AMLODIPINE BESYLATE 5 MG TABLET PO SCH (09:26)
[2018-12-11] MEDS: LEVETIRACETAM 500 MG TABLET PO SCH ×2 (09:26→17:37)
[2018-12-11] MEDS: ATORVASTATIN CALCIUM 40 MG TABLET PO SCH (09:27)
[2018-12-11] MEDS: FLUOXETINE HCL 20 MG CAPSULE PO SCH (09:27)
[2018-12-11] MEDS: DOCUSATE SODIUM 100 MG CAPSULE PO SCH ×2 (10:32→17:37)
[2018-12-12] MEDS: METFORMIN HCL 500 MG TABLET PO SCH (08:59)
[2018-12-12] MEDS: DOCUSATE SODIUM 100 MG CAPSULE PO SCH (09:02)
[2018-12-12] MEDS: LEVETIRACETAM 500 MG TABLET PO SCH (09:02)
[2018-12-12] MEDS: ATORVASTATIN CALCIUM 40 MG TABLET PO SCH (09:02)
[2018-12-12] MEDS: FLUOXETINE HCL 20 MG CAPSULE PO SCH (09:03)
[2018-12-12] MEDS: AMLODIPINE BESYLATE 5 MG TABLET PO SCH (09:03)
--- NOTE | 2018-12-12 09:34 | ER Document Report ---
Doctor's Note Notes: 12/12/18 09:34 Patient seen and evaluated. He is in no acute distress. He has no overnight complaints. Nursing staff states that he did not sleep well last night. Patient is awaiting placement for further psychiatric management of his depression, grief and suicidality. He is medically cleared.
--- NOTE | 2018-12-12 11:16 | PSYCHOLOGICAL NOTE ---
Psych Note - Psych Note Date seen by psych provider: 12/12/18 Psych Note: Presenting Problem: SI, grief, change in life due to medical (stroke 1 year ago, left sided paralysis as a result, identity loss, total care). Diagnosis: Uncomplicated Bereavement Unspecified Depressive Disorder Impression/Plan: Patient is cleared from acute psychiatric services. Recommendation to rescind IVC. He has denied SI/HI and has had euthymic mood with brighter affect the past 2 days. He had talked about PT and getting his body stronger, as well as visiting his granddaughter all of which shows future/forward/goal oriented thinking. stated he needs to talk with someone and behavioral health agrees that the Stroke changes his functioning which is a lifestyle change. Scheduled outpatient follow up with [facility] on 12/20/18 at 0800 for medication management and on 12/27/18 at 0900 for therapy. Provided outpatient MH resource sheet which documented appointment date and time, as well as IFS MCM. included in plan of care. She agreed to be in charge of medications and administration. She already locked up the firearm. She will be taking him with her to work and babysitting the next couple days in order to keep him close and monitor him. Consulted with Dr. Cerda regarding the management and care of patient. ED Physician in agreement with recommendations.
[2018-12-12 12:57] VITALS: BP 136/69
== END 2018-12-12 13:31 | disposition home or self-care (01) ==
LOC: ER 18:40
DX: R45.851 Suicidal ideations (principal); E11.9 Type 2 diabetes mellitus without complications; Z86.73 Personal history of transient ischemic attack (TIA), and cerebral infarction without residual deficits
CPT/HCPCS: 93005; 99284; 36415; 82962; 80307 ×4; 85025; 80053; 81001; 93010; A9270 ×20

== ENCOUNTER 2019-01-31 17:56 | Emergency (ER) | payer MEDICARE ==
--- NOTE | 2019-01-31 18:16 | ER Document Report ---
Addendum entered and electronically signed by DRE JIMENES MD 02/01/19 16:03: Discharge - Discharge Clinical Impression: Suicidal ideation, Neuro-degenerative disorders, History of CVA (cerebrovascular accident), Depression Condition: Stable Disposition: HOME, SELF-CARE Additional Instructions: You have been evaluated by both medical and behavioral health providers while in the emergency department. You have been cleared from both acute medical and psychiatric services. It is felt that due to your Stroke last year, physical changes related to that, cognitive and processing issues and increased depression related to lifestyle change there will likely be ongoing waxing and waning of behavioral issues. Dementia (this is not a formal diagnosis, these processes often happen after strokes) The exam shows a decrease in mental ability called dementia. Signs of dementia include a gradual loss of memory and a decreased ability to reason and solve problems. Personality changes, hostility, lack of self-care, and loss of bladder or bowel control are later signs of dementia. In these later stages, patients may become confused, lost, fearful, or agitated, even in familiar places. Alzheimer's disease is the most common type of dementia. It has no known cause or specific treatment. Other causes include alcohol and drug abuse, medication effects (especially tranquilizers and sleeping pills), strokes, head injuries, and brain tumors. Sometimes severe depression in an elderly person is mistaken for dementia, and this can be treated if recognized. A complete medical evaluation and ongoing care with a doctor is important. Most people with dementia need help or supervision with daily living. Some may be able to live independently with occasional help; others require foster care o r even halfway placement. Alcohol, sedatives, and antihistamines may make the symptoms worse and should be avoided. Alzheimer's disease support groups are available in some communities and can be very valuable to the entire family. Prescription medication can ease the symptoms of Alzheimer's disease in some patients. Please arrange for medical follow-up. Return here if there is a sudden change in mental function, inability to move an arm or leg, inability to speak, fever, or any other significant change. DEPRESSION: Your evaluation reveals that you have mental depression. While symptoms may be vague, they often include disturbance of sleep, fatigue, loss of appetite, and general loss of interest in life. While depression may be a side effect of drugs, or a reaction to a major change in your life, many cases have no known cause. If depression is acute, and related to a major loss in your life, you can expect it to clear completely with time. If you have been depressed a long time, are prone to repeated bouts of depression or low mood, or have been thinking of suicide, get help. Depression can be treated with anti-depressant medication and counselling. Long-term depression will often take a few weeks to clear, even with appropriate medication. Follow-up care is important. SUICIDAL IDEATION: Suicidal ideation is a common medical term for thoughts about suicide, which may be as detailed as a formulated plan, without the suicidal act itself. Although most people who undergo suicidal ideation do not commit suicide, some go on to make suicide attempts. The range of suicidal ideation varies greatly from fleeting to detailed planning, role playing, and unsuccessful attempts. While thoughts about suicide are common, most people do not carry out serious actions to commit suicide. Based upon your evaluation and discussion with you, we do not believe you are currently at risk to act upon your thoughts of suicide. You have agreed to return to the Emergency Department, at any time, if you feel inclined to act upon your suicidal thoughts. FOLLOW-UP CARE: You should continue your home medications as directed. You should continue outpatient mental health follow up at [facility] ([facility] for ongoing professional support via medication management and therapy. You should follow up with your Primary Care Doctor and if felt necessary referral to neurology. You have been provided the [facility] Mobile Crisis number for crisis, talk therapy and linkage to other services/supports. [facility] team coordinated with Hospital Emergency Department Social Work team and provided care home care and living information. If you experience worsening or a significant change in your symptoms, notify the physician immediately, utilize mobile crisis or return to doctors hospital Emergency Department at any time for re-evaluation. Referrals: [facility] [Provider Group] - Follow up as needed [facility] [Outside] - Follow up as needed DRE GARCIA III, MD [Primary Care Provider] - Follow up as needed Addendum entered and electronically signed by AVINASH ARGUELLO LPC 02/01/19 14:19: Discharge - Discharge Clinical Impression: Suicidal ideation, Neuro-degenerative disorders, History of CVA (cerebrovascular accident), Depression Condition: Stable Disposition: HOME, SELF-CARE Additional Instructions: You have been evaluated by both medical and behavioral health providers while in the emergency department. You have been cleared from both acute medical and psychiatric services. It is felt that due to your Stroke last year, physical changes related to that, cognitive and processing issues and increased depression related to lifestyle change there will likely be ongoing waxing and waning of behavioral issues. Dementia (this is not a formal diagnosis, these processes often happen after strokes) The exam shows a decrease in mental ability called dementia. Signs of dementia include a gradual loss of memory and a decreased ability to reason and solve problems. Personality changes, hostility, lack of self-care, and loss of bladder or bowel control are later signs of dementia. In these later stages, patients may become confused, lost, fearful, or agitated, even in familiar places. Alzheimer's disease is the most common type of dementia. It has no known cause or specific treatment. Other causes include alcohol and drug abuse, medication effects (especially tranquilizers and sleeping pills), strokes, head injuries, and brain tumors. Sometimes severe depression in an elderly person is mistaken for dementia, and this can be treated if recognized. A complete medical evaluation and ongoing care with a doctor is important. Most people with dementia need help or supervision with daily living. Some may be able to live independently with occasional help; others require foster care or even halfway placement. Alcohol, sedatives, and antihistamines may make the symptoms worse and should be avoided. Alzheimer's disease support groups are available in some communities and can be very valuable to the entire family. Prescription medication can ease the symptoms of Alzheimer's disease in some patients. Please arrange for medical follow-up. Return here if there is a sudden change in mental function, inability to move an arm or leg, inability to speak, fever, or any other significant change. DEPRESSION: Your evaluation reveals that you have mental depression. While symptoms may be vague, they often include disturbance of sleep, fatigue, loss of appetite, and general loss of interest in life. While depression may be a side effect of drugs, or a reaction to a major change in your life, many cases have no known cause. If depression is acute, and related to a major loss in your life, you can expect it to clear completely with time. If you have been depressed a long time, are prone to repeated bouts of depression or low mood, or have been thinking of suicide, get help. Depression can be treated with anti-depressant medication and counselling. Long-term depression will often take a few weeks to clear, even with appropriate medication. Follow-up care is important. SUICIDAL IDEATION: Suicidal ideation is a common medical term for thoughts about suicide, which may be as detailed as a formulated plan, without the suicidal act itself. Although most people who undergo suicidal ideation do not commit suicide, some go on to make suicide attempts. The range of suicidal ideation varies greatly from fleeting to detailed planning, role playing, and unsuccessful attempts. While thoughts about suicide are common, most people do not carry out serious actions to commit suicide. Based upon your evaluation and discussion with you, we do not believe you are currently at risk to act upon your thoughts of suicide. You have agreed to return to the Emergency Department, at any time, if you feel inclined to act upon your suicidal thoughts. FOLLOW-UP CARE: You should continue your home medications as directed. You should continue outpatient mental health follow up at [facility] ([facility]) for ongoing professional support via medication management and therapy. You should follow up with your Primary Care Doctor and if felt necessary referral to neurology. You have been provided the [facility] Mobile Crisis number for crisis, talk therapy and linkage to other services/supports. [facility] team coordinated with Hospital Emergency Department Social Work team and provided intermediate teacher care and living information. If you experience worsening or a significant change in your symptoms, notify the physician immediately, utilize mobile crisis or return to the Emergency Department at any time for re-evaluation. Referrals: DRE GARCIA III, MD [Primary Care Provider] - Follow up as needed [facility] [Outside] - Follow up as needed [facility] [Provider Group] - Follow up as needed Original Note: ED General - General Chief Complaint: Suicidal Ideation Stated Complaint: ALTERED MENTAL STATUS Time Seen by Provider: 01/31/19 18:16 Primary Care Provider: DRE GARCIA III, MD [Primary Care Provider] - Follow up as needed TRAVEL OUTSIDE OF THE [place] IN LAST 30 DAYS: No - HPI Patient complains to provider of: Suicidal ideation Notes: 63-year-old man brought in for making suicidal threats to his . Patient denies suicidal homicidal ideation. States he has been fighting with his every day for a long time. Patient is keen insight patient does have multiple history of inpatient stabilizations. She has no plan at this time. Calm and appropriate during my interview. - Related Data Allergies/Adverse Reactions: No Known Allergies Allergy (Verified 01/16/19 15:06) Past Medical History - Social History Smoking Status: Unknown if Ever Smoked Family History: Reviewed & Not Pertinent Patient has suicidal ideation: No Patient has homicidal ideation: No Endocrine Medical History: Reports: Hx Diabetes Mellitus Type 2 Renal/ Medical History: Denies: Hx Peritoneal Dialysis Past Surgical History: Reports: Hx Orthopedic Surgery - back surgery 30 years ago. - Immunizations Hx Diphtheria, Pertussis, Tetanus Vaccination: No Review of Systems - Review of Systems Notes: REVIEW OF SYSTEMS: CONSTITUTIONAL: -fevers, -chills EENT: -eye pain, -difficulty swallowing, -nasal congestion CARDIOVASCULAR: -chest pain, -syncope. RESPIRATORY: -cough, -SOB GASTROINTESTINAL: -abdominal pain, -nausea, -vomiting, -diarrhea GENITOURINARY: -dysuria, -hematuria MUSCULOSKELETAL: -back pain, -neck pain SKIN: -rash or skin lesions. HEMATOLOGIC: -easy bruising or bleeding. LYMPHATIC: -swollen, enlarged glands. NEUROLOGICAL: -altered mental status or loss of consciousness, -headache, - neurologic symptoms PSYCHIATRIC: -anxiety, -depression. ALL OTHER SYSTEMS REVIEWED AND NEGATIVE. Physical Exam - Vital signs Vitals: Temp Pulse Resp BP Pulse Ox 97.7 F 67 16 145/71 H 100 01/31/19 18:00 01/31/19 18:00 01/31/19 18:00 01/31/19 18:00 01/31/19 18:00 - Notes Notes: PHYSICAL EXAMINATION: GENERAL: Well-appearing, well-nourished and in no acute distress. HEAD: Atraumatic, normocephalic. EYES: Pupils equal round and reactive to light, extraocular movements intact, sclera anicteric, conjunctiva are normal. ENT: nares patent, oropharynx clear without exudates. Moist mucous membranes. NECK: Normal range of motion, supple without lymphadenopathy LUNGS: Breath sounds clear to auscultation bilaterally and equal. No wheezes rales or rhonchi. HEART: Regular rate and rhythm without murmurs ABDOMEN: Soft, nontender, normoactive bowel sounds. No guarding, no rebound. No masses appreciated. EXTREMITIES: Normal range of motion, no pitting or edema. No cyanosis. NEUROLOGICAL: Cranial nerves grossly intact. Normal speech, normal gait. Normal sensory and motor exams. PSYCH: Normal mood, normal affect. SKIN: Warm, Dry, normal turgor, no rashes or lesions noted. Course - Re-evaluation Re-evalutation: 01/31/19 18:21 During my interview patient is comfortably sitting in bed eating his dinner. No acute distress. Patient continues to deny suicidal ideation. Has no plan. States he was arguing with his . She did videotape him making suicidal threats. Patient states that was just in the heat of the argument. Patient has a place to stay would not be going home if he is discharged to go stay with his neighbor. 01/31/19 18:28 Personally initiate involuntary commitment paperwork on this patient 01/31/19 19:41 Extensive lab work-up shows no underlying organic cause for this behavior. Patient will be admitted involuntary commitment. - Vital Signs Vital signs: Temp Pulse Resp BP Pulse Ox 97.6 F 60 20 123/58 L 96 01/31/19 19:34 01/31/19 19:34 01/31/19 19:34 01/31/19 19:34 01/31/19 19:34 - Laboratory Result Diagrams: 01/31/19 19:00 01/31/19 19:02 Laboratory results interpreted by me: 01/31/19 01/31/19 19:00 19:02 RBC 4.21 L Hgb 13.1 L Glucose 226 H Salicylates < 1.0 L Acetaminophen < 10 L - EKG Interpretation by Ok EKG shows normal: Sinus rhythm Rate: Normal Additional EKG results interpreted by me: 01/31/19 19:11 Normal sinus rhythm 57 bpm, no ST elevations or depressions, no pathologic T wave inversions, normal QRS., normal QTC Discharge - Discharge Clinical Impression: Suicidal ideation Condition: Stable Disposition: PSYCH HOSP/UNIT Referrals: DRE GARCIA III, MD [Primary Care Provider] - Follow up as needed
[2019-01-31 19:11] LABS: ABSOLUTE BASOPHILS # (AUTO) 0.1 10^3/uL (0.0-0.2); ABSOLUTE EOSINOPHILS # (AUTO) 0.1 10^3/uL (0.0-0.6); ABSOLUTE LYMPHOCYTES (AUTO) 2.8 10^3/uL (0.5-4.7); ABSOLUTE MONOCYTES (AUTO) 0.4 10^3/uL (0.1-1.4); ABSOLUTE NEUT (AUTO) 3.9 10^3/uL (1.7-8.2); EOSINOPHILS % (AUTO) 1.8 % (0-6); HEMATOCRIT 38.4 % (37.9-51.0); HEMOGLOBIN 13.1 g/dL (13.5-17.0); LYMPHOCYTES % (AUTO) 38.1 % (13-45); MEAN CORPUSCULAR HEMOGLOBIN 31.2 pg (27.0-33.4); MEAN CORPUSCULAR HGB CONC 34.2 g/dL (32.0-36.0); MEAN CORPUSCULAR VOLUME 91 fl (80-97); MONOCYTES % (AUTO) 5.7 % (3-13); PLATELET COUNT 291 10^3/uL (150-450); RED BLOOD COUNT 4.21 10^6/uL (4.35-5.55); RED CELL DISTRIBUTION WIDTH 12.9 % (11.5-14.0); SEGMENTED NEUTROPHILS % (AUTO) 53.4 % (42-78); TOTAL CELLS COUNTED % (AUTO) 100 %; WHITE BLOOD COUNT 7.4 10^3/uL (4.0-10.5)
[2019-01-31 19:33] LABS: ALBUMIN 4.5 g/dL (3.5-5.0); ALKALINE PHOSPHATASE 83 U/L (38-126); ANION GAP 13 (5-19); ASPARTATE AMINO TRANSFERASE 18 U/L (17-59); BILIRUBIN,DIRECT 0.2 mg/dL (0.0-0.4); BILIRUBIN,TOTAL 0.4 mg/dL (0.2-1.3); BLOOD UREA NITROGEN 9 mg/dL (7-20); CALCIUM 9.8 mg/dL (8.4-10.2); CARBON DIOXIDE 26 mmol/L (22-30); CHLORIDE 102 mmol/L (98-107); GLUCOSE 226 mg/dL (75-110); POTASSIUM 4.1 mmol/L (3.6-5.0)
[2019-01-31 19:38] LABS: ACETAMINOPHEN < 10 ug/mL (10-30); ALCOHOL < 10 mg/dL (NONE DETECTED); SALICYLATE < 1.0 mg/dL (2.0-20.0)
[2019-01-31 23:38] LABS: APPEARANCE,URINE CLEAR; BILIRUBIN,URINE NEGATIVE (NEGATIVE); COLOR,URINE YELLOW; GLUCOSE, URINE >=500 mg/dL (NEGATIVE); KETONES,URINE NEGATIVE (NEGATIVE); LEUKOCYTE ESTERASE,URINE NEGATIVE (NEGATIVE); NITRITE,URINE NEGATIVE (NEGATIVE); PROTEIN,URINE NEGATIVE (NEGATIVE); UROBILINOGEN,URINE NEGATIVE mg/dL (<2.0)
[2019-01-31 23:52] LABS: URINE AMPHETAMINES SCREEN NEGATIVE; URINE BARBITURATES SCREEN NEGATIVE; URINE BENZODIAZEPINES SCREEN NEGATIVE; URINE COCAINE SCREEN NEGATIVE; URINE MARIJUANA (THC) SCREEN NEGATIVE; URINE METHADONE SCREEN NEGATIVE; URINE PHENCYCLIDINE SCREEN NEGATIVE
[2019-02-01] MEDS ORDERED: ARIPIPRAZOLE PO SCH (00:15)
[2019-02-01] MEDS ORDERED: BUSPIRONE HCL 10 MG TABLET PO ONE (00:30)
[2019-02-01] MEDS ORDERED: LEVETIRACETAM 500 MG TABLET PO ONE (00:30)
--- NOTE | 2019-02-01 07:42 | EKG REPORT ---
SEVERITY:- ABNORMAL ECG - ACCELERATED JUNCTIONAL ESCAPE RHYTHM BORDERLINE INFERIOR Q WAVES : Confirmed by: Javier Bedoya MD 01-Feb-2019 07:41:58
[2019-02-01] MEDS: METFORMIN HCL 500 MG TABLET PO SCH ×2 (08:14→16:23)
[2019-02-01] MEDS ORDERED: ATORVASTATIN CALCIUM 40 MG TABLET PO SCH (10:00)
[2019-02-01] MEDS ORDERED: FLUOXETINE HCL 20 MG CAPSULE PO SCH (10:00)
[2019-02-01] MEDS ORDERED: FAMOTIDINE 20 MG TABLET PO SCH (10:00)
[2019-02-01] MEDS ORDERED: LEVETIRACETAM 500 MG TABLET PO SCH (10:00)
[2019-02-01] MEDS ORDERED: BUSPIRONE HCL 10 MG TABLET PO SCH (10:00)
[2019-02-01] MEDS ORDERED: AMLODIPINE BESYLATE 5 MG TABLET PO SCH (10:00)
--- NOTE | 2019-02-01 10:52 | ER Document Report ---
Doctor's Note Notes: 02/01/19 10:51 Rounds: Chart reviewed and patient interviewed. Patient is here to be treated for suicidal thoughts. However, patient denies being suicidal. Says he has a relatively grandchild to whom he is very devoted and would not kill himself. Lab studies are all essentially normal. Vital signs are all esse ntially normal. Patient appears to be medically stable for transfer or discharge. Marcello De Leon MD
[2019-02-01 17:14] VITALS: BP 138/56
== END 2019-02-01 17:21 | disposition home or self-care (01) ==
LOC: ER 17:56
DX: R45.851 Suicidal ideations (principal); F32.9 Major depressive disorder, single episode, unspecified; G31.9 Degenerative disease of nervous system, unspecified; Z86.73 Personal history of transient ischemic attack (TIA), and cerebral infarction without residual deficits; Z63.0 Problems in relationship with spouse or partner; E11.9 Type 2 diabetes mellitus without complications
CPT/HCPCS: 93005; 99285; 36415; 82962; 80307 ×4; 85025; 80053; 81001; 93010; A9270 ×6

== ENCOUNTER 2019-02-02 08:03 | Emergency (ER) | payer MEDICARE ==
--- NOTE | 2019-02-02 08:13 | ER Document Report ---
ED General - General Stated Complaint: POSSIBLE SEIZURE Time Seen by Provider: 02/02/19 08:09 Primary Care Provider: DRE GARCIA III, MD [Primary Care Provider] - 02/03/19 EDWIN MONIQUE MD [NO LOCAL MD] - 02/03/19 Mode of Arrival: Medic Information source: Patient TRAVEL OUTSIDE OF THE [place] IN LAST 30 DAYS: No - HPI Notes: 63-year-old male with a history of right CVA, type 2 diabetes, hypertension, hyperlipidemia, depression, back surgery presents to the ED by EMS due to falling out of bed, hitting his head in which she then suffered a seizure approximately 7 AM. Patient was seen at [facility] yesterday for suicidal ideation and was discharged home. Patient has been taking Keppra for the last 4 years from when he did have a craniotomy from his CVA. no [id number] medications have been given, patient did receive Versed 2.5mg IV via EMS as well as Zofran 4 mg IV via EMS. Denies fevers, chills, chest pain,palpitations, shortness of breath, dyspnea, nausea, vomiting, diarrhea, abdominal pain, hematuria,blurred vision, double vision, loss of vision, speech changes, LH, dizziness, syncope, headaches, wheezing, ST, URI, neck pain, weakness, bowel or bladder dysfunction, saddle anesthesia, numbness or tingling in bilateral upper or lower extremities equally, muscle paralysis, weakness in bilateral upper or lower extremities equally or rash. - Related Data Allergies/Adverse Reactions: No Known Allergies Allergy (Verified 02/02/19 08:15) Past Medical History - General Information source: Patient - Social History Smoking Status: Smoker,Current Status Unk Family History: Reviewed & Not Pertinent - Past Medical History Cardiac Medical History: Reports: Hx Hypertension Pulmonary Medical History: Reports: Hx COPD Endocrine Medical History: Reports: Hx Diabetes Mellitus Type 2 Renal/ Medical History: Denies: Hx Peritoneal Dialysis Past Surgical History: Reports: Hx Orthopedic Surgery - back surgery 30 years ago. - Immunizations Hx Diphtheria, Pertussis, Tetanus Vaccination: No Review of Systems - Review of Systems Constitutional: No symptoms reported EENT: No symptoms reported Cardiovascular: No symptoms reported Respiratory: No symptoms reported Gastrointestinal: No symptoms reported Genitourinary: No symptoms reported Male Genitourinary: No symptoms reported Musculoskeletal: No symptoms reported Skin: No symptoms reported Hematologic/Lymphatic: No symptoms reported Neurological/Psychological: See HPI Physical Exam - Vital signs Vitals: Pulse Ox 93 02/02/19 08:14 - Notes Notes: PHYSICAL EXAMINATION: GENERAL: Well-appearing, well-nourished and in no acute distress. HEAD: Atraumatic, normocephalic. EYES: Pupils equal round and reactive to light, extraocular movements intact, sclera anicteric, conjunctiva are normal. ENT: Nares patent, oropharynx clear without exudates. Moist mucous membranes. NECK: Normal range of motion, supple without lymphadenopathy LUNGS: Breath sounds clear to auscultation bilaterally and equal. No wheezes rales or rhonchi. HEART: Regular rate and rhythm without murmurs ABDOMEN: Soft, nontender, nondistended abdomen. No guarding, no rebound. No masses appreciated. Musculoskeletal: Normal range of motion, no pitting or edema. No cyanosis. NEUROLOGICAL: Left hemiparesis, sensation intact distally in all extremities, alert and orientated x4. PERRLA, EOMI. Tongue midline. No pronator drift on right. Neck with APROM. Raises eyebrows. Speaks in full sentences. PSYCH: Normal mood, normal affect. SKIN: Warm, Dry, normal turgor, no rashes or lesions noted. Course - Re-evaluation Re-evalutation: 02/02/19 08:25 63-year-old male afebrile, vitals stable and in no distress for evaluation of seizure after he hit his head due to falling out of the bed this morning. CT head and cervical spine negative for any acute findings, c-collar was removed. CBC shows slight leukocytosis, no anemia. CMP negative for hepatic or renal dysfunction, no electrolyte disturbances. Urinalysis does show some ketones and proteinuria. Patient's neurological status has remained intact. Troponins x2 were negative, EKG negative for STEMI, chest x-ray within normal limits. Patient is currently on Keppra and has been on Keppra for a long period of time for seizures, patient did sustain seizures when he had brain surgery approximately 4 years ago. Mental health did go to bedside and felt that patient was not at risk for any suicidal or homicidal ideation. Patient verbalized to me when asked if he was homicidal or suicidal, that he was not. States that he wants to live for his grandchild and would like to have a tattoo of her name on his arm. Consulted with criminal justice social worker, Skinny Rodriguez, who has given patient's and patient resources for long-term outpatient treatment as well as needing to get on Medicaid. Patient was agreeable with this plan of care. Discussed with patient that he does need follow-up with primary care provider tomorrow for reevaluation, to continue taking his Keppra. On evaluation of his diagnostic, laboratory and clinical findings, patient does not meet criterion for any admission. Discussed concussion protocol such as being woken up every hour by someone you live with, be asked orientation questions and to call 911 if any neurological changes occur such as speech changes, weakness on one side, unable to orient, nausea, vomiting, or severe headache, etc. pt verbalized understanding of this care and agreed to plan of care. discussed worrisome symptoms as well as reasons for return over what time frame. patient states understanding and is agreeable with plan. After performing a Medical Screening Examination, I estimate there is LOW risk for ACUTE GLAUCOMA, TEMPORAL ARTERITIS, MENINGITIS, INCRANIAL HEMORRHAGE, or ISCHEMIC STROKE thus I consider the discharge disposition reasonable. I have reevaluated this patient multiple times and no significant life threatening changes are noted. The patient and I have discussed the diagnosis and risks, and we agree with discharging home with close follow-up with the understanding that symptoms and presentations can change. We also discussed returning to the Emergency Department immediately if new or worsening symptoms occur. We have discussed the symptoms which are most concerning (e.g., changing or worsening symptoms, new numbness or weakness, vomiting, fever) that necessitate immediate return. - Vital Signs Vital signs: Temp Pulse Resp BP Pulse Ox 17 118/64 96 02/02/19 14:01 02/02/19 14:00 02/02/19 14:01 - Laboratory Result Diagrams: 02/02/19 09:20 02/02/19 12:37 Laboratory results interpreted by me: 02/02/19 02/02/19 02/02/19 09:18 09:20 09:20 WBC 13.2 H RBC 4.26 L Hgb 13.1 L Seg Neutrophils % 86.9 H Lymphocytes % 9.6 L Absolute Neutrophils 11.5 H Glucose 163 H POC Glucose 162 H Urine Protein Urine Glucose (UA) Urine Ketones Salicylates < 1.0 L Acetaminophen < 10 L 02/02/19 02/02/19 11:44 12:37 WBC RBC Hgb Seg Neutrophils % Lymphocytes % Absolute Neutrophils Glucose 147 H POC Glucose Urine Protein 30 H Urine Glucose (UA) 50 H Urine Ketones 20 H Salicylates Acetaminophen - EKG Interpretation by Me EKG shows normal: Sinus rhythm Rate: Normal Rhythm: NSR Discharge - Discharge Clinical Impression: History of CVA (cerebrovascular accident), Seizure, closed head injury Condition: Stable Disposition: HOME, SELF-CARE Instructions: Concussion ([facility]), Post-Concussion Syndrome ([facility]), Seizure, Known Epileptic ([facility]) Additional Instructions: Discussed concussion protocol such as being woken up every hour by someone you live with, be asked orientation questions and to call 911 if any neurological changes occur such as speech changes, weakness on one side, unable to orient, nausea, vomiting, or severe headache, etc. pt verbalized understanding of this care and agreed to plan of care. discussed worrisome symptoms as well as reasons for return over what time frame. patient states understanding and is agreeable with plan. Your lab work today was normal, CT scan of your head and neck were normal, your cardiac markers were normal. Please follow-up outpatient with your primary care provider. Literature has been given to for long-term placement through the criminal justice social worker. Return immediately for any new or worsening symptoms. Follow up with primary care provider, call tomorrow to make followup appointment. Referrals: EDWIN MONIQUE MD [NO LOCAL MD] - 02/03/19 DRE GARCIA III, MD [Primary Care Provider] - 02/03/19
--- NOTE | 2019-02-02 09:19 | RADIOLOGY REPORT (SQ) ---
EXAM DESCRIPTION: CT HEAD WITHOUT COMPLETED DATE/TIME: 02/02/2019 8:59 am REASON FOR STUDY: fell out of bed, hit head, then had a seizure COMPARISON: CT brain 09/28/2017 TECHNIQUE: Axial images acquired through the brain without intravenous contrast. Images reviewed wi th bone, brain and subdural windows. Additional sagittal and coronal reconstructions were generated. Images stored on PACS. All CT scanners at this facility use dose modulation, iterative reconstruction, and/or weight based d osing when appropriate to reduce radiation dose to as low as reasonably achievable (ALARA). [facility]: Dose Right [facility]: CareDose [facility]: Dose Right [facility]: Teradose 4D [facility]: [employer] RADIATION DOSE: CT Rad equipment meets quality standard of care and radiation dose reduction techniq ues were employed. CTDIvol: 53.2 mGy. DLP: 1044 mGy-cm. mGy. LIMITATIONS: Motion artifact throughout the study FINDINGS: VENTRICLES: Normal size and contour. CEREBRUM: Motion artifact on some of the images. On images without motion, there is some residual l arge right MCA distribution infarct over the right frontal temporal and parietal region with low atte nuation, and mild compensatory enlargement of the right lateral ventricle. No CT evidence of acute large territory ischemic change, acute intracranial hemorrhage, mass effect, or midline shift. CEREBELLUM: Motion artifact on imaging through the posterior fossa. No gross posterior fossa acute m idline shift or hemorrhage. EXTRAAXIAL SPACES: No fluid collections. No masses. ORBITS AND GLOBE: No intra- or extraconal masses. Normal contour of globe without masses. CALVARIUM: Old right frontotemporal craniotomy PARANASAL SINUSES: No fluid or mucosal thickening. SOFT TISSUES: No mass or hematoma. OTHER: No other significant finding. 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 Motion artifact on today's study. No gross acute findings EVIDENCE OF ACUTE STROKE: NO. COMMENT: Quality ID # [id number]: Final reports with documentation of one or more dose reduction techniques (e.g., Automated exposure control, adjustment of the mA and/or kV according to patient size, use of iterative reconstruction technique) TECHNICAL DOCUMENTATION: JOB ID: [id number] 1999 [employer]- All Rights Reserved Reading location - IP/workstation name: [email or web address]
--- NOTE | 2019-02-02 09:24 | RADIOLOGY REPORT (SQ) ---
EXAM DESCRIPTION: CHEST SINGLE VIEW COMPLETED DATE/TIME: 02/02/2019 9:10 am REASON FOR STUDY: seizure, hit head COMPARISON: None. EXAM PARAMETERS: NUMBER OF VIEWS: One view. TECHNIQUE: Single frontal radiographic view of the chest acquired. RADIATION DOSE: NA LIMITATIONS: None. FINDINGS: LUNGS AND PLEURA: No opacities, masses or pneumothorax. No pleural effusion. MEDIASTINUM AND HILAR STRUCTURES: No masses. Contour normal. HEART AND VASCULAR STRUCTURES: Heart normal in size. Normal vasculature. BONES: No acute findings. HARDWARE: None in the chest. OTHER: No other significant finding. IMPRESSION: NO ACUTE RADIOGRAPHIC FINDING IN THE CHEST. TECHNICAL DOCUMENTATION: JOB ID: [id number] [employer]- All Rights Reserved Reading location - IP/workstation name: [email or web address]
--- NOTE | 2019-02-02 09:24 | RADIOLOGY REPORT (SQ) ---
EXAM DESCRIPTION: CT CERVICAL SPINE WITHOUT COMPLETED DATE/TIME: 02/02/2019 8:59 am REASON FOR STUDY: fell out of bed, hit head, then had a seizure COMPARISON: 09/28/2017 CT cervical spine TECHNIQUE: Axial images acquired through the cervical spine without intravenous contrast. Images re viewed with lung, soft tissue and bone windows. Reconstructed coronal and sagittal MPR images review ed. Images stored on PACS. All CT scanners at this facility use dose modulation, iterative reconstruction, and/or weight based d osing when appropriate to reduce radiation dose to as low as reasonably achievable (ALARA). [facility]: Dose Right [facility]: CareDose [facility]: Dose Right [facility]: Teradose 4D [facility]: [employer] RADIATION DOSE: CT Rad equipment meets quality standard of care and radiation dose reduction techniq ues were employed. CTDIvol: 15.3 mGy. DLP: 316 mGy-cm. mGy. LIMITATIONS: None. FINDINGS: ALIGNMENT: Anatomic. MINERALIZATION: Normal. VERTEBRAL BODIES: No fractures or dislocation. DISCS: No significant disc disease. FACETS, LATERAL MASSES, POSTERIOR ELEMENTS: No fractures. No dislocation. No acute findings. There is mild multilevel foraminal narrowing from facet arthropathy on the right at C3-4, and on the right at C5-6. HARDWARE: None in the spine. VISUALIZED RIBS: No fractures. LUNG APICES AND SOFT TISSUES: Right carotid stent is present OTHER: No other significant finding. IMPRESSION: NO ACUTE OR SIGNIFICANT FINDINGS IN THE CERVICAL SPINE. TECHNICAL DOCUMENTATION: JOB ID: [id number] Quality ID # [id number]: Final reports with documentation of one or more dose reduction techniques (e.g., Au tomated exposure control, adjustment of the mA and/or kV according to patient size, use of iterative reconstruction technique) 2010 [employer]- All Rights Reserved Reading location - IP/workstation name: [email or web address]
[2019-02-02 09:35] LABS: ABSOLUTE LYMPHOCYTES (AUTO) 1.3 10^3/uL (0.5-4.7); ABSOLUTE MONOCYTES (AUTO) 0.4 10^3/uL (0.1-1.4); ABSOLUTE NEUT (AUTO) 11.5 10^3/uL (1.7-8.2); BASOPHILS % (AUTO) 0.2 % (0-2); HEMATOCRIT 38.5 % (37.9-51.0); HEMOGLOBIN 13.1 g/dL (13.5-17.0); LYMPHOCYTES % (AUTO) 9.6 % (13-45); MEAN CORPUSCULAR HEMOGLOBIN 30.8 pg (27.0-33.4); MEAN CORPUSCULAR HGB CONC 34.1 g/dL (32.0-36.0); MEAN CORPUSCULAR VOLUME 91 fl (80-97); MONOCYTES % (AUTO) 3.3 % (3-13); PLATELET COUNT 293 10^3/uL (150-450); RED BLOOD COUNT 4.26 10^6/uL (4.35-5.55); RED CELL DISTRIBUTION WIDTH 12.8 % (11.5-14.0); SEGMENTED NEUTROPHILS % (AUTO) 86.9 % (42-78); TOTAL CELLS COUNTED % (AUTO) 100 %; WHITE BLOOD COUNT 13.2 10^3/uL (4.0-10.5)
[2019-02-02 09:52] LABS: ALBUMIN 4.8 g/dL (3.5-5.0); ALKALINE PHOSPHATASE 94 U/L (38-126); ANION GAP 11 (5-19); ASPARTATE AMINO TRANSFERASE 19 U/L (17-59); BILIRUBIN,DIRECT 0.3 mg/dL (0.0-0.4); BILIRUBIN,TOTAL 0.5 mg/dL (0.2-1.3); BLOOD UREA NITROGEN 15 mg/dL (7-20); CARBON DIOXIDE 27 mmol/L (22-30); CHLORIDE 104 mmol/L (98-107); CREATINE KINASE 69 U/L (55-170); GLUCOSE 163 mg/dL (75-110); POTASSIUM 4.1 mmol/L (3.6-5.0); TOTAL PROTEIN 7.4 g/dL (6.3-8.2)
[2019-02-02 09:53] LABS: ACETAMINOPHEN < 10 ug/mL (10-30); ALCOHOL < 10 mg/dL (NONE DETECTED); SALICYLATE < 1.0 mg/dL (2.0-20.0)
[2019-02-02 10:02] LABS: CREATINE KINASE MB 0.73 ng/mL (<4.55)
[2019-02-02 10:04] LABS: TROPONIN I < 0.012 ng/mL
[2019-02-02 12:00] LABS: ADD MANUAL MICROSCOPIC YES; APPEARANCE,URINE SLIGHTLY-CLOUDY; BILIRUBIN,URINE NEGATIVE (NEGATIVE); COLOR,URINE YELLOW; GLUCOSE, URINE 50 mg/dL (NEGATIVE); KETONES,URINE 20 mg/dL (NEGATIVE); LEUKOCYTE ESTERASE,URINE NEGATIVE (NEGATIVE); NITRITE,URINE NEGATIVE (NEGATIVE); PROTEIN,URINE 30 mg/dL (NEGATIVE); URINE SPECIFIC GRAVITY 1.017; UROBILINOGEN,URINE NEGATIVE mg/dL (<2.0)
[2019-02-02 12:08] LABS: WBC,URINE 0-1 /HPF
[2019-02-02 12:09] LABS: AMORPHOUS SEDIMENT,UR 1+
[2019-02-02 12:22] LABS: URINE AMPHETAMINES SCREEN NEGATIVE; URINE BARBITURATES SCREEN NEGATIVE; URINE BENZODIAZEPINES SCREEN UNCONFIRMED POSITIVE; URINE COCAINE SCREEN NEGATIVE; URINE MARIJUANA (THC) SCREEN NEGATIVE; URINE METHADONE SCREEN NEGATIVE; URINE PHENCYCLIDINE SCREEN NEGATIVE
--- NOTE | 2019-02-02 12:49 | EKG REPORT ---
SEVERITY:- NORMAL ECG - SINUS RHYTHM : Confirmed by: Javier Bedoya MD 02-Feb-2019 12:49:16
[2019-02-02 13:06] LABS: ANION GAP 10 (5-19); BLOOD UREA NITROGEN 15 mg/dL (7-20); CALCIUM 9.6 mg/dL (8.4-10.2); CARBON DIOXIDE 28 mmol/L (22-30); CHLORIDE 103 mmol/L (98-107); GLUCOSE 147 mg/dL (75-110); POTASSIUM 4.4 mmol/L (3.6-5.0)
[2019-02-02] MEDS ORDERED: NORMAL SALINE 500 ML IV PRN (13:37)
[2019-02-02 14:16] VITALS: BP 118/64
== END 2019-02-02 14:17 | disposition home or self-care (01) ==
LOC: ER 08:03
DX: R56.9 Unspecified convulsions (principal); S09.90XA Unspecified injury of head, initial encounter; W22.8XXA Striking against or struck by other objects, initial encounter; Z86.73 Personal history of transient ischemic attack (TIA), and cerebral infarction without residual deficits; Z79.899 Other long term (current) drug therapy; I10 Essential (primary) hypertension; J44.9 Chronic obstructive pulmonary disease, unspecified; E11.9 Type 2 diabetes mellitus without complications; F32.9 Major depressive disorder, single episode, unspecified; F17.200 Nicotine dependence, unspecified, uncomplicated
CPT/HCPCS: 36415; 51701; 70450; 71045; 72125; 80053; 80307; 81001; 82550; 82553; 82962; 83735; 84484; 85025; 93005; 93010; 99285